=== PATIENT | female | born 1955 ===

== ENCOUNTER 2023-05-02 15:45 | Observation (INO) ==
[2023-05-06] MEDS ORDERED: Naloxone 0.4 mg VIAL 0.4 mg/ml 1 ml VIAL IV PRN (10:19)
[2023-05-06] MEDS ORDERED: fentaNYL 100 mcg/2 ml 50 MCG/ML VIAL IV PRN (10:19)
[2023-05-06] MEDS ORDERED: oxyCODONE/Acetamin 5/325 mg TAB PO PRN (10:19)
[2023-05-06] MEDS ORDERED: Ondansetron 4 mg VIAL 2 MG/ML 2 ml VIAL IV PRN (10:19)
[2023-05-07] MEDS ORDERED: Lactated Ringers 1000 ml BAG 1,000 ML IV SCH ×2 (06:00→20:00)
[2023-05-07] MEDS ORDERED: Buffered Lidocaine 1% SYRIN 1 ml INTRADERM ONE (06:00)
[2023-05-07 13:23] LABS: Rapid COVID-19 Molecular Undetected (Undetected)
[2023-05-07] MEDS ORDERED: ceFAZolin 2 GM in NS PREMIX 2 GM/100 ML BAG IVPB ONE (13:25)
[2023-05-07] MEDS ORDERED: Midazolam 2 mg/2 ml VIAL 1 mg/ml 2 ml VIAL (2 mg) ONE (14:05)
[2023-05-07] MEDS ORDERED: Propofol 10 MG/ML 20 ML BTL ONE (14:05)
[2023-05-07] MEDS ORDERED: fentaNYL 100 mcg/2 ml 50 MCG/ML VIAL ONE (14:05)
[2023-05-07] MEDS ORDERED: Lidocaine 2% PF 5 ML VIAL ONE (14:05)
[2023-05-07] MEDS ORDERED: Dexmedetomidine 200 mcg/2 ml 2 ml VIAL (200 mcg) ONE (16:08)
[2023-05-07] MEDS ORDERED: Dexamethasone IV 4 MG/ML VIAL 1 ml VIAL ONE (16:41)
[2023-05-07] MEDS ORDERED: Ondansetron 4 mg VIAL 2 MG/ML 2 ml VIAL ONE (16:41)
[2023-05-07] MEDS ORDERED: Bupivacaine 0.25% w/EPI 10 ML SDV ONE (17:22)
[2023-05-07] MEDS ORDERED: Naloxone 0.4 mg VIAL 0.4 mg/ml 1 ml VIAL IV PRN (19:01)
[2023-05-07] MEDS ORDERED: HYDROmorphone 1 MG/1 ML SYRINGE IV PRN (19:01)
[2023-05-07] MEDS ORDERED: fentaNYL 100 mcg/2 ml 50 MCG/ML VIAL IV PRN (19:01)
[2023-05-07] MEDS ORDERED: Ondansetron 4 mg VIAL 2 MG/ML 2 ml VIAL IV PRN (19:01)
[2023-05-07] MEDS ORDERED: Acetaminophen IV 1 GM/100ML 1,000 MG/100 ML BAG IV PRN (19:01)
[2023-05-07] MEDS ORDERED: Magnesium Hydroxide LIQ 30 ML UDC PO PRN (19:44)
[2023-05-07] MEDS ORDERED: Morphine 2 MG/ML SYRINGE IV PRN (19:44)
[2023-05-07] MEDS ORDERED: Lactulose 30 ml UDC PO PRN (19:44)
[2023-05-07] MEDS: Magnesium Hydroxide LIQ 30 ML UDC PO SCH (22:42)
[2023-05-07] MEDS: ceFAZolin 1 GM ADVAN 1 GM in NS 0.9% 50 ML 50 ML IVPB SCH (23:40)
[2023-05-08 05:57] LABS: Hematocrit 29.6 % (35-45); Hemoglobin 10.1 g/dL (11.5-14.3); Mean Platelet Volume 7.5 fL (7.5-11.2); Platelet Count 284 10^3/uL (150-450)
[2023-05-08 06:14] LABS: Calcium 8.9 mg/dL (8.6-10.3); Creatinine, Serum 0.59 mg/dL (0.51-0.95); Potassium 4.5 mmol/L (3.5-5.0); eGFR CKD-EPI 98.7 (>60)
[2023-05-08] MEDS: ceFAZolin 1 GM ADVAN 1 GM in NS 0.9% 50 ML 50 ML IVPB SCH ×2 (07:57→15:14)
[2023-05-08] MEDS: Magnesium Hydroxide LIQ 30 ML UDC PO SCH (08:18)
[2023-05-08] MEDS: Pancrelipase 5,000 units CAP PO SCH ×2 (08:35→12:42)
[2023-05-08] MEDS ORDERED: Vitamin THERAPEUTIC TAB PO SCH (09:00)
[2023-05-08] MEDS ORDERED: Enoxaparin 40 MG/0.4 ML SYR SUBCUT SCH (12:00)
[2023-05-08 14:24] VITALS: BP 122/70
== END 2023-05-08 16:08 | disposition home or self-care (01) ==
LOC: AA 05-07 12:40 → INTOOBSV 05-07 12:40 → SSU 05-07 20:56
PROVIDERS: ADMIT Orthopaedic Surgery; ATTEND Orthopaedic Surgery